=== PATIENT | female | born 1940 | race African-American/Black ===

== ENCOUNTER 2016-09-29 10:14 | Inpatient (IN) ==
[2016-09-29] MEDS ORDERED: ONDANSETRON 4 MG/2 ML VIAL IV PRN (14:15)
[2016-09-29] MEDS ORDERED: SODIUM CHLORIDE 0.9% 250 ML IV PRN ×2 (14:15→15:08)
[2016-09-29] MEDS ORDERED: MORPHINE 2 MG/1 ML SYRINGE IV PRN (14:15)
[2016-09-29] MEDS ORDERED: DOCUSATE SODIUM 100 MG CAPSULE PO PRN (14:15)
[2016-09-29] MEDS ORDERED: ACETAMINOPHEN 325 MG TABLET PO PRN (14:15)
[2016-09-29] MEDS ORDERED: ZALEPLON 5 MG CAPSULE PO PRN (14:15)
[2016-09-29] MEDS ORDERED: LACTULOSE 20 GM/30 ML UDCUP PO PRN (14:15)
[2016-09-29 15:12] LABS: Basophils % 0.3 % (0.0-0.8); Eosinophils % 0.7 % (0.00-10.9); Hematocrit 21.8 VOL% (35.7-47.0); Immature Granulocytes % 0.3 %; Immature Granulocytes Absolute 0.02 #; Lymphocytes # 1.1 10*3/uL (1.4-4.0); Lymphocytes % 19.3 % (21.3-54.2); Mean Corpuscular HGB Conc 28.9 GM/DL (32-36); Mean Corpuscular Hemoglobin 18 PG (27-34); Mean Corpuscular Volume 62.1 FL (87-102); Mean Platelet Volume 10.7 FL (9.6-12.0); Monocytes # 0.6 10*3/uL (0.11-0.8); Monocytes % 9.6 % (1.7-12.7); Neutrophils # 4.1 10*3/uL (1.4-7.4); Neutrophils % 69.8 % (38.7-73.9); Platelet Count 330 T/CUMM (130-400); Red Blood Count 3.51 MC/CUMM (3.8-5.5); White Blood Count 5.9 T/CUMM (4-12)
--- NOTE | 2016-09-29 15:24 | Hospitalist History & Physical ---
Assessment and Plan - Time spent with patient Time spent with patient: Greater than 30 minutes (1) Anemia Status: Acute Assessment and plan: H&H from her PCP office 6.8 and 22.5. Will recheck labs in transfused with 2 units of packed red blood cells as necessary. Current Visit: Yes History of Present Illness Chief complaint: anemia History of present illness: Ms. Flores is a 75 year old female with a history significant for AL x 3, CAD with PCI, HTN, anemia, and hyperlipidemia who is a direct admit from [facility] with symptomatic anemia. Today, at her PCP office, her H&H was 6.8 and 22.5 with dizziness and exertional shortness of breath. The patient reports she is feeling fine until she has to stand up and move around. She also reports pica with white dirt. She has been diagnosed with iron deficiency anemia in the past and was prescribed iron pills which she reports she "took herself off of". She also notes that her appetite has decreased and she has lost nearly 10 pounds in the last 2 months. She denies headache, chest pain, palpitations, near syncope, abdominal pain, nausea or vomiting, active bleeding, hemoptosis or dark stool. She does take diclofenac, but has not taken any in several days. She has been admitted to the hospital medicine service for further evaluation and treatment. Home Medications Medication Instructions Recorded Confirmed Type Aspirin Tab 325 mg PO DAILY 09/29/16 09/29/16 History Cyanocobalamin Tab [Vitamin B12 500 mcg PO DAILY 09/29/16 09/29/16 History Tab] Diclofenac Sodium 75 mg PO BID PRN 09/29/16 09/29/16 History Lisinopril 10 mg PO DAILY 09/29/16 09/29/16 History Nitroglycerin [Nitroglycerin SL 0.4 mg SL Q5M PRN 09/29/16 09/29/16 History Tab] Omeprazole [Omeprazole] 40 mg PO DAILY 09/29/16 09/29/16 History Rosuvastatin [Crestor] 20 mg PO DAILY 09/29/16 09/29/16 History Allergies Allergy/AdvReac Type Severity Reaction Status Date / Time Penicillins Allergy Intermediate RASH Verified 01/21/15 11:06 Medical,Surgical,& Family Hx - Medical History Cardio: History of: CAD, Hypertension, AL Hematology: History of: Anemia - Surgical History Cardiac Surgeries: Sugical HX of: Cardiac Catheterization, Cardiac Surgery - Family History Family History: Reports;: Family Diabetes, Family Heart Disease, Family Hypertension - Social History Smoking Status: Former smoker Frequency of Alcohol Use: Occasionally Type of Drug Use: None Marital Status: Single Lives With:: Alone Functional capacity: independent ambulation - Constitutional Constitutional: Present: chills, weakness, weight loss. Absent: fatigue, frequent falls, headache(s) - EENT Eyes: Absent: blurry vision, loss of vision Ears: Absent: decreased hearing, ear pain Nose, mouth and throat: Absent: hoarseness, neck mass, sore throat - Cardiovascular Cardiovascular: Present: dyspnea on exertion. Absent: chest pain at rest, edema , orthopnea - Respiratory Respiratory: Present: dyspnea, dyspnea on exertion. Absent: cough - Gastrointestinal Gastrointestinal: Absent: abdominal pain, constipation, diarrhea, hematemesis, hematochezia, melena, nausea, vomiting - Genitourinary Genitourinary: Absent: difficulty urinating, dysuria, hematuria - Musculoskeletal Musculoskeletal: Absent: back pain, muscle weakness - Neurological Neurological: Present: dizziness. Absent: abnormal gait, abnormal speech, numbness, syncope - Psychiatric Psychiatric: Absent: anxiety, depression - Endocrine Endocrine: Present: cold intolerance, fatigue. Absent: heat intolerance - Hematologic/Lymphatic Hematologic/Lymphatic: Absent: easy bleeding, easy bruising Exam - Constitutional Vitals: Period Temp Pulse Resp BP Sys/Sher Pulse Ox Last 24 Hr 97.3 F-97.8 F 102-102 22-22 126-126/71-71 98 Exam: General appearance: normal weight, no acute distress - Head Head exam: Present: normocephalic, atraumatic - Eye Eye exam: Present: EOMI. Absent: conjunctival injection, nystagmus Pupils: Present: MODESTA, normal accommodation - ENT ENT exam: Present: normal exam, normal external ear exam - Neck Neck exam: Present: normal inspection. Absent: lymphadenopathy, tenderness, thyromegaly - Respiratory Respiratory exam: Present: clear to auscultation bilaterally. Absent: rales, rhonchi, wheezes - Cardiovascular Cardiovascular exam: Present: regular rate and rhythm. Absent: carotid bruit, gallop, rubs - GI/Abdominal GI/Abdominal exam: Present: normal bowel sounds. Absent: ascites, distended, mass - Extremities Exam Extremities exam: Present: normal inspection, normal capillary refill. Absent: edema - Back Exam Back exam: Absent: CVA tenderness (L), CVA tenderness (R) - Neurological Exam Neurological exam: Present: alert, oriented X3 - Psychiatric Psychiatric exam: Present: normal affect, normal mood - Skin Skin exam: Present: normal color, warm, dry
[2016-09-29 15:25] LABS: Hemoglobin 6.3 GM/DL (12.0-16.0)
[2016-09-29 15:36] LABS: Hypochromasia 2+
[2016-09-29] MEDS ORDERED: NITROGLYCERIN SL 0.4 MG TABLET SL PRN (15:36)
[2016-09-29 15:37] LABS: Anisocytosis 1+; Calcium 8.7 MG/DL (8.5-10.1); Elliptocytes Few; Microcytosis 1+; Osmolality,Calculated 277.5 MOS/KG (273-304); Potassium 4.3 MMOL/L (3.5-5.1)
[2016-09-29 15:38] LABS: Platelet Estimate Adequate; Schistocytes Few; Target Cells Few
[2016-09-29 15:50] LABS: Risk Ratio 1.61; VLDL CHOLESTEROL 18.2 MG/DL
[2016-09-29] MEDS: SODIUM CHLORIDE 0.9% 1,000 ML IV SCH (15:52)
[2016-09-30 01:45] LABS: Hematocrit 27.5 VOL% (35.7-47.0); Hemoglobin 8.4 GM/DL (12.0-16.0)
[2016-09-30] MEDS: SODIUM CHLORIDE 0.9% 1,000 ML IV SCH ×3 (06:38→22:09)
--- NOTE | 2016-09-30 07:27 | EKG Report ---
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
[2016-09-30] MEDS ORDERED: NON-FORMULARY MEDICATION (Omeprazole [Omeprazole] 40 MG) PO SCH (09:00)
[2016-09-30] MEDS ORDERED: PANTOPRAZOLE 40 MG TABLET PO SCH (09:00)
[2016-09-30] MEDS: ROSUVASTATIN 20 MG TABLET PO SCH (09:59)
[2016-09-30] MEDS: LISINOPRIL 10 MG TABLET PO SCH (09:59)
[2016-09-30] MEDS: PANTOPRAZOLE 40 MG TABLET PO SCH (09:59)
[2016-09-30] MEDS: CYANOCOBALAMIN 500 MCG TABLET PO SCH (09:59)
--- NOTE | 2016-09-30 10:00 | Hospitalist Progress Note ---
Hospitalist: Subjective Interval history: Pt reports she is no longer dizzy. No cp or SOB. No nausea, vomiting, or abd pain. No melena or BRBPR reported. +hungry. Last colonoscopy and EGD were 2 years ago per pt and according to pt and family were "normal". She denies diverticulitis. She does take NSAIDS for OA pain. Exam - Constitutional Vitals: Period Temp Pulse Resp BP Sys/Sher Pulse Ox Last 24 Hr 97.3 F-99.2 F 72-102 18-22 109-126/58-71 98-100 Exam: GEN: Patient is awake alert oriented to person place time and situation sitting on the side of the bed in no acute distress. HEENT: Pupils are equal and reactive to light. Extraocular muscles are intact. Sclerae clear. Conjunctiva slightly pale. Nares are patent. No discharge or epistaxis noted. Oropharynx is clear with slightly dry mucous membranes. NECK: Supple. no JVD Cardiovascular: Regular rate and rhythm normal S1-S2 no obvious murmurs rubs or gallop. Lungs: Clear to auscultation bilaterally with good aeration. Non-labored breathing noted. ABDOMEN: Soft, nontender, nondistended positive bowel sounds no organomegaly or masses appreciated. EXTREMITIES: Warm and well perfused no clubbing cyanosis or edema Neuro: Nonfocal Results - Labs CBC & BMP: 09/30/16 01:10 09/29/16 14:29 - Impressions * Acute on progressive symptomatic likely iron deficiency anemia s/p 2U PRBCs possibly due to GI losses- unable to do anemia panel at this point since had recent transfusion. Pt denies history of diverticulosis but should consider in patient with painless FOBT+ stools. - GI consult to consider endoscopy or SB capsule study - Serial H and H - Clear diet for now - PPI - Avoid NSAIDS for now - Check UA * GERD - PPI * Osteoarthritis - Hold NSAIDS for now * Essential Hypertension- controlled - Cont home meds DVT prophylaxis- SCDs/ Early ambulation
--- NOTE | 2016-09-30 11:10 | Gastrointestinal Consult Note ---
<Jennifer Ardon - Last Filed: 09/30/16 11:06> Assessment and Plan (1) Anemia Status: Acute Assessment and plan: 09/30-findings of hemoglobin 6.8 at PCP visit. Reports of dizziness and exertional shortness of breath for the last several weeks. NSAID use noted. Reported history of iron deficiency anemia. Hemoglobin improved at 8.4 following 2 units of packed red blood cells. Plan for EGD tomorrow to further evaluate. Regular diet. Plan an addendum to follow by Dr. Lee. Current Visit: Yes History of Present Illness Chief complaint: Anemia History of present illness: Ms. Flores is a 75 year old female who presented to the hospital after a visit at the internal medicine clinic with Dr. Nina. Patient states for the last several weeks she has felt fatigued and has had a decrease in her energy level. She states that back in May she had the flu and following that she felt like she never really fully recovered from this. She states that she has lost 10 pounds since that time as well due to her appetite has not returned. In the clinic she was found to have a hemoglobin of 6.8. She presented with reports of dizziness and shortness of breath with exertion. She was sent to the hospital for further workup. She has a history of iron deficiency anemia in the past and has been given iron pills however states she just did not take them. She has a history of blood transfusions but states this was greater than 30 or 40 years ago. Patient denies any melena or hematochezia. She denies any abdominal pain, nausea, or vomiting. She does have a history of reflux and states that the last few weeks this has been worsened despite taking her Prilosec. She takes diclofenac 1-2 times daily for arthritis pain and has done this for the last several weeks. Denies any other NSAID use. She reports that she also has a history of eating dirt which she has done for many years. Her daughters are at bedside and states this is not uncommon for their family. She was transfused 2 units of blood on yesterday and hemoglobin is now 8.4. Stools are noted to be 3+ positive for occult blood. Last known endoscopy in [address] Jordan with an EGD with findings of GERD and hiatal hernia and a colonoscopy with findings of diverticulosis. Home Medications Medication Instructions Recorded Confirmed Type Aspirin Tab 325 mg PO DAILY 09/29/16 09/29/16 History Cyanocobalamin Tab [Vitamin B12 500 mcg PO DAILY 09/29/16 09/29/16 History Tab] Diclofenac Sodium 75 mg PO BID PRN 09/29/16 09/29/16 History Lisinopril 10 mg PO DAILY 09/29/16 09/29/16 History Nitroglycerin [Nitroglycerin SL 0.4 mg SL Q5M PRN 09/29/16 09/29/16 History Tab] Omeprazole [Omeprazole] 40 mg PO DAILY 09/29/16 09/29/16 History Rosuvastatin [Crestor] 20 mg PO DAILY 09/29/16 09/29/16 History Allergies Allergy/AdvReac Type Severity Reaction Status Date / Time Penicillins Allergy Intermediate RASH Verified 01/21/15 11:06 Medical,Surgical,& Family Hx - Medical History Cardio: History of: CAD, Hypertension, PR Hematology: History of: Anemia - Surgical History Cardiac Surgeries: Sugical HX of: Cardiac Catheterization, Cardiac Surgery - Family History Family History: Reports;: Family Diabetes, Family Heart Disease, Family Hypertension - Social History Smoking Status: Former smoker Frequency of Alcohol Use: Occasionally Type of Drug Use: None 12 point system: reviewed and no additional remarkable complaints except as stated - Constitutional Constitutional: Present: as per HPI - EENT Eyes: Present: as per HPI Ears: Present: as per HPI Nose, mouth and throat: Present: as per HPI - Cardiovascular Cardiovascular: Present: as per HPI - Respiratory Respiratory: Present: as per HPI - Gastrointestinal Gastrointestinal: Present: as per HPI, heartburn - Genitourinary Genitourinary: Present: as per HPI - Musculoskeletal Musculoskeletal: Present: as per HPI, arthralgias - Neurological Neurological: Present: as per HPI - Psychiatric Psychiatric: Present: as per HPI - Endocrine Endocrine: Present: as per HPI - Hematologic/Lymphatic Hematologic/Lymphatic: Present: as per HPI Exam - Constitutional Vitals: Period Temp Pulse Resp BP Sys/Sher Pulse Ox Last 24 Hr 97.3 F-99.2 F 72-102 18-22 109-126/58-71 98-100 General appearance: normal weight, no acute distress - Head Head exam: Present: normal inspection, normocephalic - Eye Eye exam: Present: other (Lids and conjunctivae unremarked). Absent: scleral icterus - ENT ENT exam: Present: normal exam, normal oropharynx - Neck Neck exam: Present: normal inspection - Respiratory Respiratory exam: Present: clear to auscultation bilaterally. Absent: rales, rhonchi, wheezes - Cardiovascular Cardiovascular exam: Present: regular rate and rhythm. Absent: diastolic murmur , JVD, systolic murmur - GI/Abdominal GI/Abdominal exam: Present: normal bowel sounds, soft. Absent: ascites, distended, mass, organomegaly, tenderness - Extremities Exam Extremities exam: Present: normal inspection, full ROM - Back Exam Back exam: Present: normal inspection - Neurological Exam Neurological exam: Present: alert, oriented X3 - Psychiatric Psychiatric exam: Present: normal affect, normal mood - Skin Skin exam: Present: normal color, warm, dry Results - Labs CBC & BMP: 09/30/16 01:10 09/29/16 14:29 Lab Results: I have reviewed the past 24 hour labs <Kg Lee - Last Filed: 09/30/16 18:17> History of Present Illness History of present illness: Ms. Flores is a 75 year old female Exam - Constitutional Vitals: Period Temp Pulse Resp BP Sys/Sher Pulse Ox Last 24 Hr 97.7 F-99.2 F 72-88 18-20 99-125/58-70 98-100 Results - Labs CBC & BMP: 09/30/16 01:10 09/29/16 14:29
[2016-09-30 11:40] LABS: Apearance,Urine CLEAR (Clear); Bilirubin,Urine Negative (Negative); Blood, Urine Negative (Negative); Glucose,Urine (UA) Negative (Negative); Hyaline Casts,Urine 1 /LPF (0-3); Ketones,Urine Negative (Negative); Mucus,Urine Occasional /LPF (Occasional); Nitrite,Urine Negative (Negative); Protein,Urine Negative; RBC,Urine <1 /HPF (0-4); Squamous Epithelial Cell,Urine Occasional /HPF (0-10); Urine Color Straw (Yellow); Urine Specific Gravity 1.005 (1.001-1.035); Urine Urobilinogen < 2.0 EU/DL (0.2-1.0); WBC,Urine 1 /HPF (0-6)
[2016-09-30] MEDS ORDERED: BISACODYL 5 MG TABLET PO ONE (14:00)
[2016-10-01] MEDS: SODIUM CHLORIDE 0.9% 1,000 ML IV SCH ×3 (06:08→15:03)
[2016-10-01] MEDS ORDERED: PROPOFOL 200 MG/20 ML VIAL IV ONE (11:25)
[2016-10-01] MEDS ORDERED: LIDOCAINE 2% 5 ML VIAL ONE (11:25)
--- NOTE | 2016-10-01 11:38 | History and Physical Update ---
History and Physical Update - Physical Exam Mental Status: alert and oriented Heart: regular rate and rhythm Lung: clear to auscultation Abdomen: within normal limits Vitals: within normal limits
--- NOTE | 2016-10-01 11:39 | Anesthesia ---
Anesthesia Post OP - Post Ansesthetic Evaluation Patient seen in post op: Yes Resp: within normal limits CV: within normal limits Mental: within normal limits Temp: within normal limits [id number]: within normal limits Nausea and Vomiting: within normal limits Pain: within normal limits
--- NOTE | 2016-10-01 11:39 | Operative Note ---
Date of procedure: 10/01/16 Pre-op diagnosis: Iron deficiency anemia Procedure: EGD 75-year-old female with history of iron deficiency anemia and ongoing pica with karl eating. Now for EGD to further evaluate. Informed consent was obtained Patient was sedated with MAC anesthesia per anesthesia protocol. Patient placed in left lateral decubitus position the Olympus flexible video upper endoscope inserted oral cavity under direct vision the esophagus intubated. Findings: Esophagus-normal esophageal mucosa throughout no significant esophagitis stricture or varices were seen. Stomach-normal insufflation normal mucosa to direct retroflexed views of the body fundus cardia and antrum the stomach. Pylorus normal Duodenum normal for the bulb duodenum to the third portion of duodenum. The procedure terminated placed our procedure well she is discharged recovery in good condition. Postop diagnosis: 1. Essentially normal EGD 2. Proceed with colonoscopy in a.m. as planned. Anesthesia: MAC Surgeon / Physician: Kg Lee Estimated blood loss: none Specimens: none sent Condition: stable Disposition: post procedure unit Results - Labs CBC & BMP: 09/30/16 01:10 09/29/16 14:29 Discharge Plan - Discharge Medications No Action Nitroglycerin [Nitroglycerin SL Tab] 0.4 mg SL Q5M PRN PRN Reason: Chest Pain Omeprazole [Omeprazole] 40 mg PO DAILY Rosuvastatin [Crestor] 20 mg PO DAILY Lisinopril 10 mg PO DAILY Diclofenac Sodium 75 mg PO BID PRN PRN Reason: HIP PAIN Cyanocobalamin Tab [Vitamin B12 Tab] 500 mcg PO DAILY Aspirin Tab 325 mg PO DAILY - Follow Up or Referral - Forms/Instructions
[2016-10-01] MEDS ORDERED: BISACODYL 5 MG TABLET PO ONE (12:00)
[2016-10-01] MEDS: ROSUVASTATIN 20 MG TABLET PO SCH (13:28)
[2016-10-01] MEDS: LISINOPRIL 10 MG TABLET PO SCH (13:28)
[2016-10-01] MEDS: CYANOCOBALAMIN 500 MCG TABLET PO SCH (13:28)
[2016-10-01] MEDS: PANTOPRAZOLE 40 MG TABLET PO SCH (13:28)
--- NOTE | 2016-10-01 16:04 | Hospitalist Progress Note ---
Hospitalist: Subjective Interval history: Pt had EGD earlier and was normal. No new complaints. Tolerating clear diet. Denies pain. No fever. No SOB. No bleeding reported. Exam - Constitutional Vitals: Period Temp Pulse Resp BP Sys/Sher Pulse Ox Last 24 Hr 97.2 F-99.1 F 72-82 16-20 110-138/55-071 95-100 Exam: GEN: Patient is awake alert oriented to person place time and situation sitting on the side of the bed in no acute distress. HEENT: Pupils are equal and reactive to light. Extraocular muscles are intact. Sclerae clear. Conjunctiva slightly pale. Nares are patent. No discharge or epistaxis noted. Oropharynx is clear with slightly dry mucous membranes. NECK: Supple. no JVD Cardiovascular: Regular rate and rhythm normal S1-S2 no obvious murmurs rubs or gallop. Lungs: Clear to auscultation bilaterally with good aeration. Non-labored breathing noted. ABDOMEN: Soft, nontender, nondistended positive bowel sounds no organomegaly or masses appreciated. EXTREMITIES: Warm and well perfused no clubbing cyanosis or edema Neuro: Nonfocal Results - Labs CBC & BMP: 09/30/16 01:10 09/29/16 14:29 - Impressions * Acute on progressive symptomatic likely iron deficiency anemia s/p 2U PRBCs possibly due to GI losses- unable to do anemia panel since had recent transfusion. Pt denies history of diverticulosis but should consider in patient with painless FOBT+ stools. - GI following. s/p EGD 10/01- normal. Plans for colonoscopy 10/02. If negative may need SB capsule study - Serial H and H - Clear diet for now - PPI - Avoid NSAIDS for now - Check UA - Stop IVF * GERD - PPI * Osteoarthritis - Hold NSAIDS for now * Essential Hypertension- controlled - Cont home meds DVT prophylaxis- SCDs/ Early ambulation
[2016-10-01] MEDS ORDERED: POLYETHYLENE GLYCOL POWDER 255 GM BOTTLE PO ONE (18:00)
[2016-10-01] MEDS ORDERED: ALUMINUM/MAGNES/SIMETH MAX STR 30 ML UDCUP PO PRN (21:40)
[2016-10-02 05:57] LABS: Basophils % 0.3 % (0.0-0.8); Eosinophils # 0.2 10*3/uL (0.0-0.87); Eosinophils % 3.2 % (0.00-10.9); Hematocrit 26.8 VOL% (35.7-47.0); Immature Granulocytes % 0.3 %; Immature Granulocytes Absolute 0.02 #; Lymphocytes # 1.4 10*3/uL (1.4-4.0); Lymphocytes % 23.4 % (21.3-54.2); Mean Corpuscular HGB Conc 29.9 GM/DL (32-36); Mean Corpuscular Hemoglobin 21 PG (27-34); Mean Corpuscular Volume 68.5 FL (87-102); Mean Platelet Volume 10.4 FL (9.6-12.0); Monocytes # 0.5 10*3/uL (0.11-0.8); Monocytes % 8.2 % (1.7-12.7); Neutrophils # 3.9 10*3/uL (1.4-7.4); Neutrophils % 64.6 % (38.7-73.9); Platelet Count 276 T/CUMM (130-400); Red Blood Count 3.91 MC/CUMM (3.8-5.5); Red Cell Distribution Width 24.2 % (9.3-17.3)
[2016-10-02 06:18] LABS: Hypochromasia 1+
[2016-10-02 06:19] LABS: Microcytosis 1+
[2016-10-02 06:20] LABS: Acanthocytes Few; Ovalocytes Few; Spherocytes Few
[2016-10-02 06:21] LABS: Platelet Estimate Normal
--- NOTE | 2016-10-02 10:03 | Discharge Summary ---
<Ajay Adams - Last Filed: 10/02/16 14:18> Hospital Course - Hospital Course Hospital Course: The patient is a 75-year-old female who presented to the hospital as a direct admit from her PCP with symptomatic anemia on 09/29/2016. On admission, she was found to have H&H of 6.3 and 21.8 with dizziness and exertional shortness of breath. Patient has been taking diclofenac 75 mg p.o. twice daily, has taken herself off of iron supplements, and reported pica with white dirt. She was transfused with 2 units of PRBCs and H&H improved to 8.4 and 22.5. GI was consulted and the patient underwent an EGD on 10/01/2016. EGD was essentially normal and the patient was scheduled for a colonoscopy on today. C scope showed colon polyps and diverticulosis coli. GI suspects patient's iron deficiency anemia is likely secondary to PICA. He recommends small bowel series as an outpatient to complete workup while continuing iron replacement and avoid ongoing pica. Patient will need to maintain adequate fiber and fluid intake for the diverticulosis. At this time, patient has reached maximum benefit from hospitalization and stable for discharge. She will need to follow up outpatient with her PCP in 2-4 weeks and GI for polyp pathology plan with a repeat colonoscopy in 5 years. - Time spent with patient Time with patient DS: Greater than 30 minutes Diagnosis - Discharge Diagnosis (1) Anemia Status: Acute Specialty Discharge - Follow Up or Referrals Follow up with: Delroy Fisher MD [Physician] - 2 Weeks Discharge Plan - Discharge Data Disposition: Disch To Home/Self Care - Discharge Medications New Acetaminophen Tab [Tylenol Tab] 325 mg PO Q4H PRN #0 tablet PRN Reason: fever, headache/body aches Docusate Sodium Cap [Colace Cap] 100 mg PO BID PRN #0 capsule PRN Reason: Constipation Continue Nitroglycerin [Nitroglycerin SL Tab] 0.4 mg SL Q5M PRN PRN Reason: Chest Pain Omeprazole 40 mg PO DAILY Rosuvastatin [Crestor] 20 mg PO DAILY Lisinopril 10 mg PO DAILY Cyanocobalamin Tab [Vitamin B12 Tab] 500 mcg PO DAILY Discontinued Diclofenac Sodium 75 mg PO BID PRN PRN Reason: HIP PAIN Aspirin Tab 325 mg PO DAILY - Follow Up or Referral - Forms/Instructions Exam - Constitutional Vitals: Period Temp Pulse Resp BP Sys/Sher Pulse Ox Last 24 Hr 97.2 F-99.0 F 70-82 16-20 111-160/60-77 97-100 Discharge Results Procedures and tests throughout hospitalization: Pending Orders 09/30/16 Occult Blood, Stool Routine Labs on day of discharge: Labs from last 24 hours 10/02/16 05:40 WBC 6.0 RBC 3.91 Hgb 8.0 L Hct 26.8 L MCV 68.5 L MCH 21 L MCHC 29.9 L RDW 24.2 H Plt Count 276 MPV 10.4 Neut % (Auto) 64.6 Lymph % (Auto) 23.4 Cannon % (Auto) 8.2 Eos % (Auto) 3.2 Baso % (Auto) 0.3 Neut # (Auto) 3.9 Lymph # (Auto) 1.4 Cannon # (Auto) 0.5 Eos # (Auto) 0.2 Baso # (Auto) 0.0 Immature Gran % 0.3 Nucleated RBC % 0.0 Immature Gran # 0.02 Nucleated RBCs # 0.00 Platelet Estimate Normal Hypochromasia 1+ Microcytosis 1+ Spherocytes Few Ovalocytes Few Acanthocytes (Spur) Few DS: Provider Date of admission: 09/29/16 14:17 Primary care physician: Bigg Nina MD Attending physician on admission: Fadi Hennessy MD Consults: 09/29/16 15:45 Consult to Physician [CONS] Routine Comment: [facility] [place] Provider: Kg Lee Consult to Specialist Group: Gastroenterology When should Consulting Provider be notified: Now Consult Notification Comment: CONSULT CALLED 09/29/16 BY SIDNEY GREENWOOD Discharging clinician: Ajay BALLARD Expected date of discharge: 10/02/16 <Maria Del Rosario Aguilera - Last Filed: 10/02/16 15:47> Hospital Course - Time spent with patient Time with patient DS: Greater than 30 minutes (40 minutes) Diagnosis - Discharge Diagnosis (1) Diverticulosis Status: Acute (2) Colon polyp Status: Acute Discharge Plan - Discharge Data Condition at Discharge: Stable Discharge Diet: heart healthy Activity: other (As tolerated) Contact your physician if you experience:: fever over 101, Difficulty voiding, Redness or swelling, Shortness of breath, Bleeding, pain uncontrolled by pain medications Exam - Constitutional Exam: GEN: Patient is awake alert oriented to person place time and situation sitting on the side of the bed in no acute distress. HEENT: Pupils are equal and reactive to light. Extraocular muscles are intact. Sclerae clear. Conjunctiva slightly pale. Nares are patent. No discharge or epistaxis noted. Oropharynx is clear with slightly dry mucous membranes. NECK: Supple. no JVD Cardiovascular: Regular rate and rhythm normal S1-S2 no obvious murmurs rubs or gallop. Lungs: Clear to auscultation bilaterally with good aeration. Non-labored breathing noted. ABDOMEN: Soft, nontender, nondistended positive bowel sounds no organomegaly or masses appreciated. EXTREMITIES: Warm and well perfused no clubbing cyanosis or edema Neuro: Nonfocal
[2016-10-02] MEDS ORDERED: LIDOCAINE 2% 5 ML VIAL ONE (12:50)
[2016-10-02] MEDS ORDERED: PROPOFOL 200 MG/20 ML VIAL IV ONE (12:50)
--- NOTE | 2016-10-02 13:22 | Operative Note ---
Date of procedure: 10/02/16 Pre-op diagnosis: Iron deficiency anemia Procedure: Colonoscopy with polypectomy 75-year-old black female with history of iron deficiency anemia ongoing history of pica now for colonoscopy to further evaluate. Informed symptoms obtained the patient She was sedated with MAC anesthesia per anesthesia protocol. Patient placed in left lateral decubitus position digital exam was normal the Olympus flexible video colonoscope Serling canal and direct vision to the level of the cecum. There is significant redundancy requiring external splinting. Prep is rated at fair with a large amount of thick secretions remaining. Withdrawal time 12 minutes. Findings: Cecum-identify obvious ago valve appendiceal orifice. Ascending colon-normal Transverse colon-normal Descending colon-diverticulosis otherwise normal Sigmoid colon moderate diverticulosis and a 6 mm polyp mid sigmoid was snare removed. Rectum-normal to direct and retroflexed views. The procedure terminated placed our procedure well she is discharged recovery in good condition. Postop diagnosis: 1. Colon daytg-dyjrzk-ku polyp path plan repeat colonoscopy in 5 years 2. Diverticulosis coli-maintain adequate fiber and fluid intake 3. Iron deficiency anemia likely secondary to pica. Will need small bowel series as an outpatient to complete workup continue iron replacement and avoid ongoing pica. 4. Okay to discharge from my standpoint follow-up with her primary care provider. Call if we can be of further assistance. Anesthesia: MAC Surgeon / Physician: Kg Lee Estimated blood loss: none Specimens: other (Sigmoid colon polyp) Condition: stable Disposition: post procedure unit Results - Labs CBC & BMP: 10/02/16 05:40 09/29/16 14:29 Discharge Plan - Discharge Medications No Action Nitroglycerin [Nitroglycerin SL Tab] 0.4 mg SL Q5M PRN PRN Reason: Chest Pain Omeprazole [Omeprazole] 40 mg PO DAILY Rosuvastatin [Crestor] 20 mg PO DAILY Lisinopril 10 mg PO DAILY Diclofenac Sodium 75 mg PO BID PRN PRN Reason: HIP PAIN Cyanocobalamin Tab [Vitamin B12 Tab] 500 mcg PO DAILY Aspirin Tab 325 mg PO DAILY - Follow Up or Referral - Forms/Instructions
--- NOTE | 2016-10-02 13:25 | Anesthesia ---
Anesthesia Post OP - Post Ansesthetic Evaluation Patient seen in post op: Yes Resp: within normal limits CV: within normal limits Mental: within normal limits Temp: within normal limits Uwoi-Ld-Xlpnsigyx: within normal limits Nausea and Vomiting: within normal limits Pain: within normal limits
[2016-10-02 13:53] VITALS: BP 141/77
[2016-10-02] MEDS: PANTOPRAZOLE 40 MG TABLET PO SCH (14:39)
[2016-10-02] MEDS: CYANOCOBALAMIN 500 MCG TABLET PO SCH (14:39)
[2016-10-02] MEDS: LISINOPRIL 10 MG TABLET PO SCH (14:40)
[2016-10-02] MEDS: ROSUVASTATIN 20 MG TABLET PO SCH (14:40)
--- NOTE | 2016-10-05 11:23 | Pathology Report from [facility] ---
ACCESSION # : [id number] PATIENT NAME : Rad Barajas ORDERING DR : ALANNA CALVILLO MD CLINICAL HX: Anemia POST-OP DX: Same SPECIMEN INFO: Sigmoid colon polyp GROSS DESCRIPTION: Received in formalin labeled "ANG BARAJAS" is a 0.3 x 0.3 cm carey polyp submitted in one cassette. DIAGNOSIS FOR RAD BARAJAS: SIGMOID COLON POLYP: Tubular adenoma. SERVICE DATE: 10/04/2016 REPORT DATE: 10/05/2016 PATHOLOGIST: Rodney Ambrose M.D. [facility] [place]
== END 2016-10-02 16:23 | disposition home or self-care (01) | DRG 812 ==
LOC: N.2E → SUATTDRO 12:53
PROVIDERS: ADMIT Internal Medicine Infectious Disease; ATTEND Pediatrics

== ENCOUNTER 2019-12-22 00:56 | Inpatient (IN) ==
[2019-12-22] MEDS ORDERED: ONDANSETRON 4 MG/2 ML VIAL IV STA (01:19)
[2019-12-22] MEDS ORDERED: MORPHINE 4 MG/1 ML VIAL IV STA (01:43)
[2019-12-22 02:01] LABS: Basophils % 0.4 % (0.0-0.8); Eosinophils # 0.1 10*3/uL (0.0-0.87); Eosinophils % 1.6 % (0.00-10.9); Hematocrit 36.2 VOL% (35.7-47.0); Hemoglobin 10.9 GM/DL (12.0-16.0); Immature Granulocytes % 0.3 %; Immature Granulocytes Absolute 0.02 #; Lymphocytes # 1.5 10*3/uL (1.4-4.0); Lymphocytes % 22.3 % (21.3-54.2); Mean Corpuscular HGB Conc 30.1 GM/DL (32-36); Mean Corpuscular Volume 73.3 FL (87-102); Mean Platelet Volume 11.1 FL (9.6-12.0); Monocytes % 8.3 % (1.7-12.7); Neutrophils % 67.1 % (38.7-73.9); Platelet Count 225 T/CUMM (130-400); Red Blood Count 4.94 MC/CUMM (3.8-5.5); White Blood Count 6.7 T/CUMM (4-12)
[2019-12-22 02:10] LABS: Alanine Aminotransferase 18 U/L (13-56); Albumin 3.9 G/DL (3.4-5.0); Alkaline Phosphatase 69 U/L (45-117); Aspartate Amino Transferase 15 U/L (0-37); Bilirubin,Total < 0.39 MG/DL (0.2-1.0); Blood Urea Nitrogen 9 MG/DL (7-18); Calcium 9.4 MG/DL (8.5-10.1); Estimated Glom Filtration Rate 63 ML/MIN; Glucose 98 MG/DL (74-106); Osmolality,Calculated 271.8 MOS/KG (273-304); Total Protein 7.8 G/DL (6.4-8.3)
[2019-12-22 02:38] LABS: Apearance,Urine CLEAR (Clear); Bacteria,Urine Occasional /HPF (Few); Bilirubin,Urine Negative (Negative); Blood, Urine Small mg/dL (Negative); Glucose,Urine (UA) Negative (Negative); Hyaline Casts,Urine 3 /LPF (0-3); Ketones,Urine Negative (Negative); Mucus,Urine Occasional /LPF (Occasional); Nitrite,Urine Negative (Negative); Protein,Urine Negative; RBC,Urine 3 /HPF (0-4); Squamous Epithelial Cell,Urine Occasional /HPF (0-10); Urine Specific Gravity 1.012 (1.001-1.035); Urine Urobilinogen < 2.0 EU/DL (0.2-1.0); WBC,Urine 2 /HPF (0-6)
[2019-12-22 02:39] LABS: Urine Color Yellow (Yellow)
[2019-12-22] MEDS ORDERED: ONDANSETRON 4 MG/2 ML VIAL IV PRN (03:48)
[2019-12-22] MEDS ORDERED: MORPHINE 4 MG/1 ML VIAL IV PRN (03:48)
[2019-12-22] MEDS ORDERED: LEVOFLOXACIN INJ 500 MG in PREMIX 1 EACH IV SCH (04:00)
[2019-12-22] MEDS: DEXTROSE 5% NACL 0.45% 1,000 ML IV SCH ×2 (05:25→15:43)
[2019-12-22 07:11] LABS: Calcium 9.6 MG/DL (8.5-10.1)
[2019-12-22 07:53] LABS: Basophils % 0.2 % (0.0-0.8); Eosinophils # 0.1 10*3/uL (0.0-0.87); Hematocrit 37.2 VOL% (35.7-47.0); Hemoglobin 11.3 GM/DL (12.0-16.0); Immature Granulocytes % 0.2 %; Immature Granulocytes Absolute 0.01 #; Lymphocytes # 0.8 10*3/uL (1.4-4.0); Lymphocytes % 16.8 % (21.3-54.2); Mean Corpuscular HGB Conc 30.4 GM/DL (32-36); Mean Corpuscular Volume 72.4 FL (87-102); Mean Platelet Volume 11.9 FL (9.6-12.0); Monocytes % 9.1 % (1.7-12.7); Neutrophils % 72.7 % (38.7-73.9); Platelet Count 230 T/CUMM (130-400); Red Blood Count 5.14 MC/CUMM (3.8-5.5); Red Cell Distribution Width 18.1 % (9.3-17.3); White Blood Count 4.8 T/CUMM (4-12)
[2019-12-22] MEDS: PANTOPRAZOLE 40 MG VIAL IV SCH (09:38)
[2019-12-22] MEDS ORDERED: hydrALAZINE 20 MG/1 ML VIAL IV PRN (12:22)
[2019-12-22] MEDS ORDERED: lisinopriL 10 MG TABLET PO SCH (15:00)
[2019-12-22] MEDS ORDERED: PHENOL 1.4% THROAT SPRAY 177 ML BOTTLE PO PRN (15:48)
[2019-12-22] MEDS: lisinopriL 10 MG TABLET PER TUBE SCH (16:13)
[2019-12-23] MEDS: DEXTROSE 5% NACL 0.45% 1,000 ML IV SCH ×3 (00:58→20:50)
[2019-12-23] MEDS: PANTOPRAZOLE 40 MG VIAL IV SCH (08:57)
[2019-12-23] MEDS: lisinopriL 10 MG TABLET PER TUBE SCH (08:58)
[2019-12-24] MEDS: DEXTROSE 5% NACL 0.45% 1,000 ML IV SCH ×2 (06:24→16:07)
[2019-12-24 06:28] LABS: Basophils % 0.3 % (0.0-0.8); Eosinophils # 0.1 10*3/uL (0.0-0.87); Eosinophils % 3.7 % (0.00-10.9); Hematocrit 31.7 VOL% (35.7-47.0); Hemoglobin 9.4 GM/DL (12.0-16.0); Immature Granulocytes % 0.3 %; Immature Granulocytes Absolute 0.01 #; Lymphocytes # 1.5 10*3/uL (1.4-4.0); Lymphocytes % 38.4 % (21.3-54.2); Mean Corpuscular HGB Conc 29.7 GM/DL (32-36); Mean Corpuscular Volume 74.6 FL (87-102); Mean Platelet Volume 11.7 FL (9.6-12.0); Monocytes % 11.1 % (1.7-12.7); Neutrophils % 46.2 % (38.7-73.9); Platelet Count 175 T/CUMM (130-400); Red Blood Count 4.25 MC/CUMM (3.8-5.5); Red Cell Distribution Width 17.9 % (9.3-17.3); White Blood Count 3.8 T/CUMM (4-12)
[2019-12-24 06:40] LABS: Calcium 8.6 MG/DL (8.5-10.1); Osmolality,Calculated 279.1 MOS/KG (273-304)
[2019-12-24 08:26] LABS: Anisocytosis 1+; Ovalocytes Few; Platelet Estimate Normal; Poikilocytosis Slight
[2019-12-24] MEDS: PANTOPRAZOLE 40 MG VIAL IV SCH (10:10)
[2019-12-24] MEDS ORDERED: POTASSIUM CHLORIDE 20 MEQ TABLET PO ONE (12:45)
[2019-12-25] MEDS: DEXTROSE 5% NACL 0.45% 1,000 ML IV SCH (01:35)
[2019-12-25 06:46] LABS: Calcium 8.8 MG/DL (8.5-10.1); Osmolality,Calculated 283.8 MOS/KG (273-304)
[2019-12-25 07:30] VITALS: BP 116/72
[2019-12-25] MEDS: PANTOPRAZOLE 40 MG VIAL IV SCH (09:31)
== END 2019-12-25 10:15 | disposition home or self-care (01) | DRG 390 ==
LOC: N.ED 00:56 → N.EDINP 03:48 → N.3E 04:03
PROVIDERS: ADMIT Surgery; ATTEND Surgery

== ENCOUNTER 2019-12-27 22:17 | Inpatient (IN) ==
[2019-12-27] MEDS ORDERED: METOCLOPRAMIDE 10 MG/2 ML VIAL IV STA (23:03)
[2019-12-27] MEDS ORDERED: SODIUM CHLORIDE 0.9% 500 ML IV STA (23:03)
[2019-12-27] MEDS ORDERED: ONDANSETRON 4 MG/2 ML VIAL IV STA (23:03)
[2019-12-27] MEDS ORDERED: PANTOPRAZOLE 40 MG VIAL IV STA (23:03)
[2019-12-27] MEDS ORDERED: DICYCLOMINE 20 MG/2 ML AMP IM ONE (23:03)
[2019-12-28 00:01] LABS: Basophils % 0.1 % (0.0-0.8); Eosinophils % 0.4 % (0.00-10.9); Hematocrit 39.6 VOL% (35.7-47.0); Hemoglobin 11.9 GM/DL (12.0-16.0); Immature Granulocytes % 0.3 %; Immature Granulocytes Absolute 0.02 #; Lymphocytes # 0.9 10*3/uL (1.4-4.0); Lymphocytes % 11.4 % (21.3-54.2); Mean Corpuscular HGB Conc 30.1 GM/DL (32-36); Mean Corpuscular Volume 72.7 FL (87-102); Mean Platelet Volume 11.2 FL (9.6-12.0); Monocytes % 5.1 % (1.7-12.7); Neutrophils % 82.7 % (38.7-73.9); Platelet Count 251 T/CUMM (130-400); Red Blood Count 5.45 MC/CUMM (3.8-5.5); Red Cell Distribution Width 18.4 % (9.3-17.3); White Blood Count 7.5 T/CUMM (4-12)
[2019-12-28 00:13] LABS: Alanine Aminotransferase 18 U/L (13-56); Alkaline Phosphatase 70 U/L (45-117); Amylase 75 U/L (25-115); Aspartate Amino Transferase 12 U/L (0-37); Bilirubin,Total < 0.39 MG/DL (0.2-1.0); Blood Urea Nitrogen 5 MG/DL (7-18); Calcium 9.9 MG/DL (8.5-10.1); Estimated Glom Filtration Rate 63 ML/MIN; Ferritin 20.5 ng/ml (8-252); Glucose 115 MG/DL (74-106); Osmolality,Calculated 276.4 MOS/KG (273-304); Troponin I < 0.015 NG/ML (0.00-0.045)
[2019-12-28] MEDS ORDERED: metroNIDAZOLE INJ 500 MG in PREMIX 1 EACH IV STA (00:22)
[2019-12-28] MEDS ORDERED: LEVOFLOXACIN INJ 750 MG in PREMIX 1 EACH IV STA (00:22)
[2019-12-28 00:29] LABS: Apearance,Urine CLEAR (Clear); Bilirubin,Urine Negative (Negative); Blood, Urine Negative (Negative); Glucose,Urine (UA) Negative (Negative); Hyaline Casts,Urine 4 /LPF (0-3); Ketones,Urine Negative (Negative); Mucus,Urine Occasional /LPF (Occasional); Nitrite,Urine Negative (Negative); Protein,Urine Negative; RBC,Urine 1 /HPF (0-4); Squamous Epithelial Cell,Urine Occasional /HPF (0-10); Urine Color Yellow (Yellow); Urine Specific Gravity 1.018 (1.001-1.035); Urine Urobilinogen < 2.0 EU/DL (0.2-1.0); WBC,Urine <1 /HPF (0-6)
[2019-12-28] MEDS ORDERED: hydrALAZINE 20 MG/1 ML VIAL IV PRN (01:02)
[2019-12-28] MEDS ORDERED: GLUCAGON 1 MG VIAL IM PRN (01:02)
[2019-12-28] MEDS ORDERED: DEXTROSE 50% 25 GM/50 ML VIAL IV PRN (01:02)
[2019-12-28] MEDS ORDERED: MORPHINE 4 MG/1 ML VIAL IV PRN (01:02)
[2019-12-28] MEDS ORDERED: NICOTINE 21 MG/24 HR PATCH TRANSDERM PRN (01:02)
[2019-12-28] MEDS ORDERED: ENOXAPARIN 80 MG/0.8 ML SYRINGE SUBCUT ONE (01:05)
[2019-12-28] MEDS: POTASSIUM CHLORIDE INJ 40 MEQ in SODIUM CHLORIDE 0.45% 1,000 ML IV SCH ×2 (04:00→21:26)
[2019-12-28 05:02] LABS: Basophils % 0.2 % (0.0-0.8); Eosinophils % 0.4 % (0.00-10.9); Hemoglobin 11.1 GM/DL (12.0-16.0); Immature Granulocytes % 0.2 %; Immature Granulocytes Absolute 0.01 #; Lymphocytes # 0.6 10*3/uL (1.4-4.0); Lymphocytes % 10.7 % (21.3-54.2); Mean Platelet Volume 10.8 FL (9.6-12.0); Monocytes % 10.2 % (1.7-12.7); Neutrophils % 78.3 % (38.7-73.9); Platelet Count 218 T/CUMM (130-400); Red Blood Count 5.07 MC/CUMM (3.8-5.5); Red Cell Distribution Width 17.8 % (9.3-17.3); White Blood Count 5.2 T/CUMM (4-12)
[2019-12-28 05:28] LABS: Albumin 3.2 G/DL (3.4-5.0); Bilirubin,Total 0.6 MG/DL (0.2-1.0); Calcium 9.1 MG/DL (8.5-10.1); Osmolality,Calculated 281.1 MOS/KG (273-304)
[2019-12-28] MEDS: metroNIDAZOLE INJ 500 MG in PREMIX 1 EACH IV SCH ×2 (10:25→16:23)
[2019-12-28] MEDS: PANTOPRAZOLE 40 MG VIAL IV SCH ×2 (10:25→21:25)
[2019-12-29] MEDS: metroNIDAZOLE INJ 500 MG in PREMIX 1 EACH IV SCH ×3 (00:19→17:58)
[2019-12-29] MEDS: LEVOFLOXACIN INJ 750 MG in PREMIX 1 EACH IV SCH (02:14)
[2019-12-29 05:13] LABS: Basophils % 0.5 % (0.0-0.8); Eosinophils # 0.1 10*3/uL (0.0-0.87); Eosinophils % 2.7 % (0.00-10.9); Hematocrit 30.9 VOL% (35.7-47.0); Hemoglobin 9.4 GM/DL (12.0-16.0); Immature Granulocytes % 0.3 %; Immature Granulocytes Absolute 0.01 #; Lymphocytes # 1.6 10*3/uL (1.4-4.0); Lymphocytes % 43.3 % (21.3-54.2); Mean Corpuscular HGB Conc 30.4 GM/DL (32-36); Mean Corpuscular Volume 71.9 FL (87-102); Mean Platelet Volume 11.5 FL (9.6-12.0); Monocytes % 10.5 % (1.7-12.7); Neutrophils % 42.7 % (38.7-73.9); Platelet Count 182 T/CUMM (130-400); White Blood Count 3.7 T/CUMM (4-12)
[2019-12-29 05:34] LABS: Calcium 8.7 MG/DL (8.5-10.1); Osmolality,Calculated 279.1 MOS/KG (273-304)
[2019-12-29 05:47] LABS: Hypochromasia 1+; Platelet Estimate Adequate
[2019-12-29] MEDS: PANTOPRAZOLE 40 MG VIAL IV SCH ×2 (08:32→21:16)
[2019-12-29] MEDS ORDERED: DEXAMETHASONE 4 MG/1 ML VIAL ONE (09:27)
[2019-12-29] MEDS ORDERED: ROPIVACAINE 0.5% 30 ML VIAL ONE (09:27)
[2019-12-29] MEDS ORDERED: DEXMEDETOMIDINE 200 MCG/2 ML VIAL ONE (09:27)
[2019-12-29] MEDS ORDERED: LIDOCAINE 1% 5 ML VIAL ONE (09:27)
[2019-12-29] MEDS ORDERED: HEPARIN/NACL 0.9% 2 UNITS/ML 500 ML IV ONE (09:27)
[2019-12-29] MEDS ORDERED: HYDROmorphone 2 MG/1 ML VIAL ONE (12:15)
[2019-12-29] MEDS ORDERED: ONDANSETRON 4 MG/2 ML VIAL ONE (12:16)
[2019-12-29] MEDS ORDERED: ONDANSETRON 4 MG/2 ML VIAL IV PRN (12:17)
[2019-12-29] MEDS ORDERED: LIDOCAINE 2% 5 ML VIAL ONE (12:18)
[2019-12-29] MEDS: HYDROmorphone 2 MG/1 ML VIAL IV PRN ×3 (12:18→17:57)
[2019-12-29] MEDS ORDERED: DESFLURANE 1 UNIT/15 MINUTE INH ONE (12:18)
[2019-12-29] MEDS ORDERED: SUCCINYLCHOLINE 200 MG/10 ML VIAL ONE (12:19)
[2019-12-29] MEDS ORDERED: GLYCOPYRROLATE 0.4 MG/2 ML VIAL ONE (12:19)
[2019-12-29] MEDS ORDERED: METOPROLOL TARTRATE 5 MG/5 ML VIAL IV ONE (12:19)
[2019-12-29] MEDS ORDERED: NEOSTIGMINE 10 MG/10 ML VIAL ONE (12:19)
[2019-12-29] MEDS ORDERED: ETOMIDATE 40 MG/20 ML VIAL IV ONE (12:19)
[2019-12-29] MEDS ORDERED: fentaNYL 100 MCG/2 ML VIAL ONE (12:19)
[2019-12-29] MEDS ORDERED: LACTATED RINGERS 1,000 ML IV ONE (12:19)
[2019-12-29] MEDS ORDERED: ROCURONIUM 100 MG/10 ML VIAL IV ONE (12:19)
[2019-12-29] MEDS ORDERED: hydrALAZINE 20 MG/1 ML VIAL ONE (12:25)
[2019-12-29 12:27] LABS: Apearance,Urine CLEAR (Clear); Bilirubin,Urine Negative (Negative); Blood, Urine Small mg/dL (Negative); Glucose,Urine (UA) Negative (Negative); Ketones,Urine 20 mg/dL (Negative); Mucus,Urine Occasional /LPF (Occasional); Nitrite,Urine Negative (Negative); Protein,Urine Negative; RBC,Urine 1 /HPF (0-4); Squamous Epithelial Cell,Urine Occasional /HPF (0-10); Urine Color Straw (Yellow); Urine Specific Gravity 1.008 (1.001-1.035); Urine Urobilinogen < 2.0 EU/DL (0.2-1.0); WBC,Urine <1 /HPF (0-6)
[2019-12-29] MEDS ORDERED: ALBUTEROL/IPRATROPIUM 3 ML NEB RESP TX PRN (12:44)
[2019-12-29] MEDS: ONDANSETRON 4 MG/2 ML VIAL IV PRN (17:57)
[2019-12-29] MEDS: POTASSIUM CHLORIDE INJ 40 MEQ in SODIUM CHLORIDE 0.45% 1,000 ML IV SCH (22:23)
[2019-12-30] MEDS: ONDANSETRON 4 MG/2 ML VIAL IV PRN ×3 (01:48→14:59)
[2019-12-30] MEDS: HYDROmorphone 2 MG/1 ML VIAL IV PRN ×4 (01:55→22:49)
[2019-12-30] MEDS: metroNIDAZOLE INJ 500 MG in PREMIX 1 EACH IV SCH ×3 (01:57→18:03)
[2019-12-30] MEDS: LEVOFLOXACIN INJ 750 MG in PREMIX 1 EACH IV SCH (03:07)
[2019-12-30 06:58] LABS: Basophils % 0.1 % (0.0-0.8); Hematocrit 35.2 VOL% (35.7-47.0); Hemoglobin 10.4 GM/DL (12.0-16.0); Immature Granulocytes % 0.4 %; Immature Granulocytes Absolute 0.03 #; Lymphocytes # 0.8 10*3/uL (1.4-4.0); Lymphocytes % 10.9 % (21.3-54.2); Mean Corpuscular HGB Conc 29.5 GM/DL (32-36); Mean Corpuscular Volume 74.7 FL (87-102); Mean Platelet Volume 11.6 FL (9.6-12.0); Monocytes % 11.9 % (1.7-12.7); Neutrophils % 76.7 % (38.7-73.9); Platelet Count 226 T/CUMM (130-400); Red Blood Count 4.71 MC/CUMM (3.8-5.5); White Blood Count 7.6 T/CUMM (4-12)
[2019-12-30 07:23] LABS: Bilirubin,Total 0.4 MG/DL (0.2-1.0); Calcium 8.7 MG/DL (8.5-10.1); Osmolality,Calculated 272.8 MOS/KG (273-304); Total Protein 6.5 G/DL (6.4-8.3)
[2019-12-30 07:38] LABS: Hypochromasia 1+
[2019-12-30 07:39] LABS: Anisocytosis 1+; Ovalocytes Few; Platelet Estimate Normal; Polychromasia Slight
[2019-12-30] MEDS: PANTOPRAZOLE 40 MG VIAL IV SCH ×2 (08:00→21:09)
[2019-12-31] MEDS: metroNIDAZOLE INJ 500 MG in PREMIX 1 EACH IV SCH ×2 (01:12→07:59)
[2019-12-31] MEDS: LEVOFLOXACIN INJ 750 MG in PREMIX 1 EACH IV SCH (02:36)
[2019-12-31] MEDS: ONDANSETRON 4 MG/2 ML VIAL IV PRN ×3 (03:32→16:36)
[2019-12-31 05:32] LABS: Basophils % 0.1 % (0.0-0.8); Hematocrit 32.9 VOL% (35.7-47.0); Hemoglobin 9.8 GM/DL (12.0-16.0); Immature Granulocytes % 0.3 %; Immature Granulocytes Absolute 0.03 #; Lymphocytes # 1.1 10*3/uL (1.4-4.0); Lymphocytes % 12.4 % (21.3-54.2); Mean Corpuscular HGB Conc 29.8 GM/DL (32-36); Mean Corpuscular Volume 73.6 FL (87-102); Monocytes % 12.4 % (1.7-12.7); Neutrophils % 74.8 % (38.7-73.9); Platelet Count 225 T/CUMM (130-400); Red Blood Count 4.47 MC/CUMM (3.8-5.5); White Blood Count 8.6 T/CUMM (4-12)
[2019-12-31 05:54] LABS: Calcium 8.5 MG/DL (8.5-10.1); Osmolality,Calculated 264.4 MOS/KG (273-304)
[2019-12-31] MEDS ORDERED: SODIUM CHLORIDE 0.9% 500 ML IV ONE (06:03)
[2019-12-31] MEDS: DEXTROSE 5% NACL 0.45% 1,000 ML IV SCH (07:06)
[2019-12-31] MEDS: HYDROmorphone 2 MG/1 ML VIAL IV PRN ×2 (07:58→16:36)
[2019-12-31] MEDS: PANTOPRAZOLE 40 MG VIAL IV SCH ×2 (07:59→20:51)
[2019-12-31] MEDS ORDERED: PHENOL 1.4% THROAT SPRAY 177 ML BOTTLE PO PRN (10:56)
[2019-12-31] MEDS: DEXT 5% LACT RING KCL 20 MEQ 20 MEQ/1,000 ML BAG IV SCH ×2 (12:15→21:40)
[2020-01-01] MEDS: DEXT 5% LACT RING KCL 20 MEQ 20 MEQ/1,000 ML BAG IV SCH ×4 (01:39→17:37)
[2020-01-01] MEDS: HYDROmorphone 2 MG/1 ML VIAL IV PRN ×3 (01:50→21:31)
[2020-01-01 06:29] LABS: Basophils % 0.1 % (0.0-0.8); Eosinophils # 0.1 10*3/uL (0.0-0.87); Eosinophils % 0.7 % (0.00-10.9); Hematocrit 30.3 VOL% (35.7-47.0); Hemoglobin 9.2 GM/DL (12.0-16.0); Immature Granulocytes % 0.6 %; Immature Granulocytes Absolute 0.04 #; Lymphocytes # 0.9 10*3/uL (1.4-4.0); Lymphocytes % 13.5 % (21.3-54.2); Mean Corpuscular HGB Conc 30.4 GM/DL (32-36); Mean Platelet Volume 10.9 FL (9.6-12.0); Monocytes % 11.8 % (1.7-12.7); Neutrophils % 73.3 % (38.7-73.9); Platelet Count 215 T/CUMM (130-400); Red Blood Count 4.21 MC/CUMM (3.8-5.5); Red Cell Distribution Width 17.4 % (9.3-17.3); White Blood Count 6.8 T/CUMM (4-12)
[2020-01-01 06:47] LABS: Calcium 8.7 MG/DL (8.5-10.1); Osmolality,Calculated 273.7 MOS/KG (273-304)
[2020-01-01] MEDS: PANTOPRAZOLE 40 MG VIAL IV SCH ×2 (09:04→21:28)
[2020-01-01] MEDS: POTASSIUM CHLORIDE INJ 40 MEQ in SODIUM CHLORIDE 0.45% 1,000 ML IV SCH (11:14)
[2020-01-01] MEDS: DEXTROSE 5% NACL 0.45% 1,000 ML IV SCH ×2 (11:15→11:16)
[2020-01-01] MEDS: ENOXAPARIN 40 MG/0.4 ML SYRINGE SUBCUT SCH (21:28)
[2020-01-01] MEDS: ONDANSETRON 4 MG/2 ML VIAL IV PRN (21:32)
[2020-01-02] MEDS: DEXT 5% LACT RING KCL 20 MEQ 20 MEQ/1,000 ML BAG IV SCH ×2 (02:04→11:54)
[2020-01-02 05:56] LABS: Basophils % 0.3 % (0.0-0.8); Eosinophils # 0.1 10*3/uL (0.0-0.87); Eosinophils % 1.4 % (0.00-10.9); Hematocrit 31.7 VOL% (35.7-47.0); Hemoglobin 9.5 GM/DL (12.0-16.0); Immature Granulocytes % 0.5 %; Immature Granulocytes Absolute 0.03 #; Lymphocytes # 1.2 10*3/uL (1.4-4.0); Lymphocytes % 18.6 % (21.3-54.2); Mean Corpuscular Volume 72.7 FL (87-102); Mean Platelet Volume 10.7 FL (9.6-12.0); Monocytes % 9.4 % (1.7-12.7); Neutrophils % 69.8 % (38.7-73.9); Platelet Count 238 T/CUMM (130-400); Red Blood Count 4.36 MC/CUMM (3.8-5.5); Red Cell Distribution Width 17.4 % (9.3-17.3); White Blood Count 6.3 T/CUMM (4-12)
[2020-01-02] MEDS: ONDANSETRON 4 MG/2 ML VIAL IV PRN ×3 (06:32→21:13)
[2020-01-02 06:34] LABS: % Iron Saturation 10.4 % (18-50); Calcium 9.1 MG/DL (8.5-10.1); Ferritin 105.9 ng/ml (8-252); Osmolality,Calculated 272.7 MOS/KG (273-304)
[2020-01-02] MEDS: PANTOPRAZOLE 40 MG VIAL IV SCH ×2 (10:12→21:15)
[2020-01-02] MEDS: DEXTROSE 5% LACTATED RINGERS 1,000 ML IV SCH (13:53)
[2020-01-02] MEDS: HYDROmorphone 2 MG/1 ML VIAL IV PRN ×2 (13:58→21:17)
[2020-01-02] MEDS: ENOXAPARIN 40 MG/0.4 ML SYRINGE SUBCUT SCH (21:14)
[2020-01-03] MEDS: DEXTROSE 5% LACTATED RINGERS 1,000 ML IV SCH ×2 (02:07→19:56)
[2020-01-03 05:08] LABS: Basophils % 0.3 % (0.0-0.8); Eosinophils # 0.3 10*3/uL (0.0-0.87); Eosinophils % 4.5 % (0.00-10.9); Hematocrit 30.1 VOL% (35.7-47.0); Hemoglobin 9.1 GM/DL (12.0-16.0); Immature Granulocytes % 0.5 %; Immature Granulocytes Absolute 0.03 #; Lymphocytes # 1.4 10*3/uL (1.4-4.0); Mean Corpuscular HGB Conc 30.2 GM/DL (32-36); Mean Corpuscular Volume 72.5 FL (87-102); Mean Platelet Volume 10.4 FL (9.6-12.0); Monocytes % 12.2 % (1.7-12.7); Neutrophils % 59.5 % (38.7-73.9); Platelet Count 229 T/CUMM (130-400); Red Blood Count 4.15 MC/CUMM (3.8-5.5); Red Cell Distribution Width 17.1 % (9.3-17.3)
[2020-01-03 05:19] LABS: Calcium 8.7 MG/DL (8.5-10.1); Osmolality,Calculated 272.7 MOS/KG (273-304)
[2020-01-03] MEDS ORDERED: MAGNESIUM SULF RIDER 2 GM in PREMIX 1 EACH IV ONE ×2 (07:59→18:00)
[2020-01-03] MEDS ORDERED: IRON (CARBONYL)/VIT C/B12/FA TABLET PO SCH (09:00)
[2020-01-03] MEDS: POTASSIUM CHLORIDE RIDER 10 MEQ in PREMIX 1 EACH IV SCH ×2 (09:18→10:39)
[2020-01-03] MEDS: PANTOPRAZOLE 40 MG VIAL IV SCH ×2 (09:19→20:01)
[2020-01-03] MEDS: HYDROmorphone 2 MG/1 ML VIAL IV PRN ×2 (09:26→19:54)
[2020-01-03] MEDS: ONDANSETRON 4 MG/2 ML VIAL IV PRN ×3 (09:26→23:53)
[2020-01-03] MEDS ORDERED: POTASSIUM CHLORIDE 20 MEQ TABLET PO ONE (10:17)
[2020-01-03] MEDS: IRON (CARBONYL)/VIT C/B12/FA TABLET PO SCH (20:01)
[2020-01-03] MEDS: ENOXAPARIN 40 MG/0.4 ML SYRINGE SUBCUT SCH (20:01)
[2020-01-04] MEDS ORDERED: PROMETHAZINE 25 MG/1 ML VIAL IM PRN (02:17)
[2020-01-04] MEDS: DEXTROSE 5% LACTATED RINGERS 1,000 ML IV SCH ×2 (03:45→13:00)
[2020-01-04 06:23] LABS: Basophils % 0.3 % (0.0-0.8); Eosinophils # 0.2 10*3/uL (0.0-0.87); Hematocrit 29.7 VOL% (35.7-47.0); Hemoglobin 9.1 GM/DL (12.0-16.0); Immature Granulocytes % 0.2 %; Immature Granulocytes Absolute 0.01 #; Lymphocytes # 1.1 10*3/uL (1.4-4.0); Lymphocytes % 19.8 % (21.3-54.2); Mean Corpuscular HGB Conc 30.6 GM/DL (32-36); Mean Corpuscular Volume 70.7 FL (87-102); Mean Platelet Volume 10.7 FL (9.6-12.0); Monocytes % 11.1 % (1.7-12.7); Neutrophils % 64.6 % (38.7-73.9); Platelet Count 250 T/CUMM (130-400); Red Cell Distribution Width 17.3 % (9.3-17.3); White Blood Count 5.8 T/CUMM (4-12)
[2020-01-04 06:40] LABS: Calcium 8.8 MG/DL (8.5-10.1); Osmolality,Calculated 270.8 MOS/KG (273-304)
[2020-01-04] MEDS: IRON (CARBONYL)/VIT C/B12/FA TABLET PO SCH ×2 (08:02→20:08)
[2020-01-04] MEDS: ROSUVASTATIN 20 MG TABLET PO SCH (08:02)
[2020-01-04] MEDS: CYANOCOBALAMIN 500 MCG TABLET PO SCH (08:02)
[2020-01-04] MEDS: PANTOPRAZOLE 40 MG VIAL IV SCH (08:02)
[2020-01-04] MEDS: HYDROmorphone 2 MG/1 ML VIAL IV PRN (14:48)
[2020-01-04] MEDS: METOPROLOL TARTRATE 25 MG TABLET PO SCH (20:07)
[2020-01-04] MEDS: ENOXAPARIN 40 MG/0.4 ML SYRINGE SUBCUT SCH (20:08)
[2020-01-04] MEDS: ONDANSETRON 4 MG/2 ML VIAL IV PRN (20:08)
[2020-01-05] MEDS: DEXTROSE 5% LACTATED RINGERS 1,000 ML IV SCH (06:26)
[2020-01-05 06:38] LABS: Calcium 8.8 MG/DL (8.5-10.1); Osmolality,Calculated 271.7 MOS/KG (273-304)
[2020-01-05] MEDS: METOPROLOL TARTRATE 25 MG TABLET PO SCH (09:05)
[2020-01-05] MEDS: IRON (CARBONYL)/VIT C/B12/FA TABLET PO SCH ×2 (09:05→20:52)
[2020-01-05] MEDS: CYANOCOBALAMIN 500 MCG TABLET PO SCH (09:05)
[2020-01-05] MEDS: ROSUVASTATIN 20 MG TABLET PO SCH (09:05)
[2020-01-05] MEDS: ENOXAPARIN 40 MG/0.4 ML SYRINGE SUBCUT SCH (20:52)
[2020-01-06] MEDS: ONDANSETRON 4 MG/2 ML VIAL IV PRN (01:06)
[2020-01-06] MEDS: ROSUVASTATIN 20 MG TABLET PO SCH (09:53)
[2020-01-06] MEDS: CYANOCOBALAMIN 500 MCG TABLET PO SCH (09:53)
[2020-01-06] MEDS: IRON (CARBONYL)/VIT C/B12/FA TABLET PO SCH (09:53)
[2020-01-06] MEDS ORDERED: ALUMINUM/MAGNES/SIMETH MAX STR 30 ML UDCUP PO PRN (15:50)
[2020-01-06 16:07] VITALS: BP 112/58
== END 2020-01-06 18:02 | disposition home health service (06) | DRG 331 ==
LOC: N.ED 22:17 → SUATTDRO 12-28 01:02 → N.EDINP 12-28 01:02 → N.3E 12-28 03:20 → N.4E 01-01 10:42
PROVIDERS: ADMIT Internal Medicine; ATTEND Internal Medicine